=== PATIENT | male | born 1980 | race Caucasian/White ===

== ENCOUNTER 2016-07-25 12:00 | Inpatient (IN) | payer OTHER ==
[~2016-07-25] VITALS: Ht 188 cm; Wt 158.8 kg
--- NOTE | ~2016-07-25 | HC ---
[facility] [place] [address] CONSULTATION Name: ALBINO ESTRELLA Room #: 211-P ADM IN M.R.#: [id number] Admission: 07/25/16 Attend Phys: Kyle Sanz DO Discharge: Date of : 76 Report #: [id number] THIS REPORT FOR: //name// CC: JIM physician/PCP Kyle Sanz DATE OF SERVICE: 07/25/2016 INDICATION: Chest pain. HISTORY OF PRESENT ILLNESS: This is a 36-year-old male with no significant past medical history presenting with chest pains. He reports waking up with chest pain this morning in the left side of his chest, radiating up into the shoulder and back area. It comes and goes with no obvious triggering factors. There is no history of fever, chills, runny nose, diarrhea, PND or orthopnea. His initial ECG is unremarkable and the troponins are negative. PAST MEDICAL HISTORY: Admitted in 2013 with pericarditis, at that time he did have EKG changes. Denies any history of hypertension or diabetes. MEDICATIONS: Include Xanax on a p.r.n. basis. ALLERGIES: None. SOCIAL HISTORY: Smokes less than 1 pack of cigarettes per month. FAMILY HISTORY: Negative for premature CAD. REVIEW OF SYSTEMS: A full 10-point review of systems performed. Only the pertinent positives and negatives are described in the HPI. PHYSICAL EXAMINATION: VITAL SIGNS: Blood pressure is 130/70, heart rate is 60 beats per minute. GENERAL APPEARANCE: An overweight male in no acute respiratory distress. HEAD AND EYES: Normocephalic. Sclerae are anicteric. ENT: Oral mucosa moist. NECK: Supple. LUNGS: Clear to auscultation. CARDIAC: Regular rate and rhythm, S1, S2 positive. ABDOMEN: Soft, nontender. Bowel sounds positive. EXTREMITIES: No major joint deformities. No edema. ECG reveals sinus rhythm, otherwise normal. LABORATORY VALUES: Troponin x 2 is negative. White count is 8.0, hemoglobin 17.4. Sodium is 142, creatinine is 1.1. [address] [address] CONSULTATION Name: ALBINO ESTRELLA Room #: [facility] IN M.R.#: [id number] Admission: 07/25/16 Attend Phys: Kyle Sanz DO Discharge: Date of : 76 Report #: [id number] ASSESSMENT: 1. Chest pain syndrome, the pain is reproducible with palpation in the left chest area. The cause is most likely a musculoskeletal etiology. The ECG does not show any acute ST segment changes, no indication for ischemia or pericarditis. Would recommend non-steroidal anti-inflammatory drugs for pain relief. 2. Prior history of pericarditis, the ECG does not suggest a prior cardiac etiology. His symptoms are not consistent with this diagnosis either. 3. Tobacco use, smoking cessation is discussed. 4. Obesity, recommend life style modifications. Thank you for allowing me to participate in the care of your patient. <ELECTRONICALLY SIGNED> By: Benjamín Baig MD 07/26/16 0805 1654 02 Benjamín Baig MD /nt
--- NOTE | ~2016-07-25 | EKG ---
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
[2016-07-25 12:00] VITALS: BP 157/104
[~2016-07-25 12:00] MED LIST: HYDROCODONE-APA1 TA1 PO; IBUPROFEN 800800 M1 PO; NORCO 5-325 TA1 EACH PO; PERCOCET 7.5-31 EACH PO; SENNA-S TABLET1 EACH PO; XANAX 0.5 MG0.5 MG PO
[2016-07-25 12:23] LABS: ABSOLUTE NEUTROPHILS 3.9 thou/uL (1.4-8.2); BASOPHILS 0.5 % (0.0-2.0); EOSINOPHILS 2.8 % (0.0-3.0); HEMATOCRIT 49.9 % (42.0-52.0); HEMOGLOBIN 17.4 gm/dL (14.0-18.0); LYMPHOCYTES 39.8 % (24.0-44.0); MCH 32.2 pg (26.0-34.0); MCHC 34.9 g/dL (28.0-37.0); MCV 92.4 fL (80.0-100.0); MONOCYTES 7.5 % (1.0-8.0); PLATELET COUNT 248 thou/uL (150-400); POLYS 49.4 % (36.0-66.0); RDW 12.8 % (10.5-14.5)
[2016-07-25 12:24] LABS: MANUAL DIFF NO
[2016-07-25 12:28] LABS: ANION GAP 10 mmol/L (7-16); BUN 11 mg/dL (7-18); CALCIUM 9.2 mg/dL (8.5-10.1); CHLORIDE 107 mmol/L (98-107); CO2 25 mmol/L (21-32); CREATININE 1.1 mg/dL (0.6-1.3); GLUCOSE 98 mg/dL (70-99); SODIUM 142 mmol/L (136-145)
[2016-07-25 12:41] LABS: NT-PRO BRAIN NAT PEPTIDE 12 pg/mL (<300); TROPONIN-I < 0.04 ng/mL (<0.04-0.07)
[2016-07-25 14:01] LABS: AMP/METHAMP Negative (Negative); BARBITURATES Negative (Negative); BENZODIAZEPINES POSITIVE (Negative); COCAINE Negative (Negative); METHADONE Negative (Negative); OPIATES Negative (Negative); PCP Negative (Negative); THC POSITIVE (Negative)
[2016-07-25 14:45] VITALS: BP 129/69
[2016-07-25 15:59] VITALS: BP 138/82
[2016-07-25 19:50] VITALS: BP 153/94
[2016-07-26 00:30] VITALS: BP 133/76
[2016-07-26 03:31] LABS: ABSOLUTE NEUTROPHILS 4.1 thou/uL (1.4-8.2); BASOPHILS 0.4 % (0.0-2.0); EOSINOPHILS 3.6 % (0.0-3.0); HEMATOCRIT 45.6 % (42.0-52.0); HEMOGLOBIN 15.9 gm/dL (14.0-18.0); LYMPHOCYTES 39.4 % (24.0-44.0); MCH 32.3 pg (26.0-34.0); MCHC 34.9 g/dL (28.0-37.0); MCV 92.5 fL (80.0-100.0); MONOCYTES 8.2 % (1.0-8.0); PLATELET COUNT 246 thou/uL (150-400); POLYS 48.4 % (36.0-66.0); RBC 4.93 mil/uL (4.50-6.00); RDW 12.9 % (10.5-14.5); WBC 8.5 thou/uL (4.0-11.0)
[2016-07-26 03:33] LABS: MANUAL DIFF NO
[2016-07-26 03:45] VITALS: BP 131/87
[2016-07-26 03:50] LABS: ANION GAP 6 mmol/L (7-16); BUN 12 mg/dL (7-18); CALCIUM 8.9 mg/dL (8.5-10.1); CHLORIDE 106 mmol/L (98-107); CO2 29 mmol/L (21-32); CREATININE 1.1 mg/dL (0.6-1.3); GLUCOSE 86 mg/dL (70-99); POTASSIUM 4.4 mmol/L (3.5-5.1); SODIUM 141 mmol/L (136-145); TROPONIN-I < 0.04 ng/mL (<0.04-0.07)
[2016-07-26 12:24] VITALS: BP 134/82
[2016-07-26] MEDS ORDERED: APAP650 PO (12:57)
[2016-07-26] MEDS ORDERED: PANTOPRAZOLE SO40 M1 PO (12:57)
[2016-07-26 13:35] VITALS: BP 134/82
[2016-07-26] MEDS ORDERED: PROTONIX40 M1 PO (14:10)
[2016-07-26] MEDS ORDERED: HYDROCODONE-APA1 TA1 PO (14:10)
== END 2016-07-26 14:33 | disposition home or self-care (01) | DRG 313 ==
LOC: ER 12:00 → EROBS 13:22 → 2N 14:00
PROVIDERS: Emergency Medicine; Internal Medicine Geriatric Medicine
DX: R07.89 Other chest pain (principal); Z68.41 Body mass index [BMI] 40.0-44.9, adult; F17.210 Nicotine dependence, cigarettes, uncomplicated; R06.02 Shortness of breath; K21.9 Gastro-esophageal reflux disease without esophagitis; F12.90 Cannabis use, unspecified, uncomplicated; G47.30 Sleep apnea, unspecified; E66.01 Morbid (severe) obesity due to excess calories; Z91.09 Other allergy status, other than to drugs and biological substances; Z71.6 Tobacco abuse counseling
CPT/HCPCS: 10081

== ENCOUNTER 2017-09-25 22:15 | Inpatient (IN) | payer OTHER ==
[~2017-09-25] VITALS: Ht 188 cm; Wt 154.2 kg
--- NOTE | ~2017-09-25 | 2DMMODE ---
[facility] [address] [facility] [place] [address] 2 D/M-MODE ECHOCARDIOGRAM Name: DELORESALBINO LINARES Room #: 459-P [facility] IN ..#: [id number] Admission: 09/26/17 Attend Phys: Ish Norman MD Discharge: Date of : 76 Date of Service: 09/26/17 1849 Report #: [id number] THIS REPORT FOR: //name// APPROVED REPORT Study performed: 09/26/2017 13:35:20 EXAM: Comprehensive 2D, Doppler, and color-flow Echocardiogram Patient Location: Bedside Room #: 459 Status: routine BSA: 2.72 HR: 68 bpm BP: 124/68 mmHg Other Information Study Quality: Adequate Indications Dyspnea Syncope Chest Pain Hypertension/HDD 2D Dimensions LVEF(%): 59.80 (>50%) IVSd: 13.24 (7-11mm) LVDd: 53.64 mm PWd: 13.51 (7-11mm) Ascending Ao: 27.62 (22-36mm) LVDs: 36.41 (25-40mm) Left Atrium: 44.12 (27-40mm) Aortic Root: 29.40 mm IVC: 2.30 mm Phoenix's LVEF: 59.80 % Volumes Left Atrial Volume (Systole) Single Plane 4CH: 36.19 mL Aortic Valve AoV Peak Raul.: 1.75 m/s AO Peak Gr.: 13.54 mmHg LVOT Max P.75 mmHg AO Mean Gr.: 7.15 mmHg AO V2 Mean: 1.30 m/s LVOT Max V: 1.09 m/s AO V2 VTI: 39.51 cm [facility] [address] [place] [address] 2 D/M-MODE ECHOCARDIOGRAM Name: ALBINO ESTRELLA Room #: 459-P [facility] IN [facility].#: [id number] Admission: 09/26/17 Attend Phys: Ish Norman MD Discharge: Date of : 76 Date of Service: 09/26/17 1849 Report #: [id number] Mitral Valve E/A Ratio: 1.7 MV Decel. Time: 229.11 ms MV E Max Raul.: 1.18 m/s MV A Raul.: 0.71 m/s MV PHT: 66.44 ms IVRT: 96.89 ms Pulmonary Valve PV Peak Raul.: 1.12 m/s PV Peak Gr.: 5.03 mmHg Pulmonary Vein P Vein S: 0.64 m/s P Vein A: 0.33 m/s P Vein D: 0.55 m/s P Vein A Dur.: 156.9 msec P Vein S/D Ratio: 1.16 Tricuspid Valve TR Peak Raul.: 3.03 m/s TR Peak Gr.: 36.84 mmHg Left Ventricle Left ventricle is at the upper limits of normal. Borderline concentric left ventricular hypertrophy. The left ventricular systolic function is normal. The left ventricular ejection fraction is within the normal range. LVEF is 55-60%. The left ventricular diastolic function is normal. Right Ventricle Normal RV size The right ventricular systolic function is normal. Atria The left atrium size is normal. The right atrium size is normal. Aortic Valve The aortic valve is normal in structure. No aortic regurgitation is present. There is no aortic valvular stenosis. Mitral Valve The mitral valve is normal in structure. Trace mitral regurgitation. No evidence of mitral valve stenosis. Tricuspid Valve The tricuspid valve is normal in structure. Trace tricuspid regurgitation. There is trace tricuspid regurgitation. [facility] [address] [facility] [place] [address] 2 D/M-MODE ECHOCARDIOGRAM Name: DELORESALBINO MILAGROS Room #: 459-P [facility] IN ..#: [id number] Admission: 09/26/17 Attend Phys: Ish Norman MD Discharge: Date of : 76 Date of Service: 09/26/17 1849 Report #: [id number] atrial pressure is estimated at 36 mmHg. Right ventricular systolic pressure is estimated at 39 mmHg. There is mild pulmonary hypertension. Pulmonic Valve The pulmonary valve is normal in structure. There is no pulmonic valvular regurgitation. Great Vessels The aortic root is normal in size. IVC is normal in size and collapses >50% with inspiration. Pericardium There is no pericardial effusion. <Conclusion> Borderline concentric left ventricular hypertrophy. The left ventricular systolic function is normal. The left ventricular ejection fraction is within the normal range. LVEF is 55-60%. The left ventricular diastolic function is normal. Normal RV size The right ventricular systolic function is normal. The aortic valve is normal in structure. No aortic regurgitation is present. There is no aortic valvular stenosis. The mitral valve is normal in structure. Trace mitral regurgitation. No evidence of mitral valve stenosis. There is no pericardial effusion. <ELECTRONICALLY SIGNED> By: Tom Barnett MD 09/26/171848 48 48 Tom Barnett MD /INF
--- NOTE | ~2017-09-25 | EKG ---
[address] [address] ELECTROCARDIOGRAM REPORT Name: ALBINO ESTRELLA Room #: 459-P ADM IN M.R.#: [id number] Admission: 09/26/17 Attend Phys: sIh Norman MD Discharge: Date of : 76 Report #: [id number] THIS REPORT FOR: //name// 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
--- NOTE | ~2017-09-25 | EKG ---
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
[~2017-09-25 22:15] MED LIST changes: +APAP650 PO; +HYDROCODON-ACE1 EAC7 PO; +IBUPROFEN 200200 M1 PO; +NEURONTIN600 MG PO; +PANTOPRAZOLE SO40 M1 PO; +PREDNISONE 20 M20 MG PO; +PROTONIX40 M1 PO; +ROBAXIN500 MG PO; +TIZANIDINE HCL4 M1 PO; +TRAMADOL 50 MG50 MG PO; +TYLENOL325 MG PO
[2017-09-25 22:38] VITALS: BP 135/82
[2017-09-25 22:59] LABS: ABSOLUTE NEUTROPHILS 9.4 thou/uL (1.4-8.2); BASOPHILS 0.4 % (0.0-2.0); EOSINOPHILS 0.8 % (0.0-3.0); HEMOGLOBIN 16.1 gm/dL (14.0-18.0); LYMPHOCYTES 18.5 % (24.0-44.0); MCH 32.1 pg (26.0-34.0); MCV 91.6 fL (80.0-100.0); MONOCYTES 7.6 % (1.0-8.0); PLATELET COUNT 266 thou/uL (150-400); POLYS 72.7 % (36.0-66.0); RBC 5.02 mil/uL (4.50-6.00); RDW 13.2 % (10.5-14.5); WBC 12.9 thou/uL (4.0-11.0)
[2017-09-25 23:07] LABS: ANION GAP 10 mmol/L (7-16); BUN 17 mg/dL (7-18); CHLORIDE 105 mmol/L (98-107); CO2 27 mmol/L (21-32); CREATININE 1.4 mg/dL (0.7-1.3); GLUCOSE 105 mg/dL (74-106); POTASSIUM 3.8 mmol/L (3.5-5.1); SODIUM 142 mmol/L (136-145)
[2017-09-25 23:16] LABS: ALBUMIN 4.5 g/dL (3.4-5.0); SGOT 29 U/L (15-37); SGPT 52 U/L (30-65); TOTAL BILIRUBIN 0.8 mg/dL (<0.1-1.0); TOTAL PROTEIN 8.2 g/dL (6.4-8.2); TROPONIN-I < 0.04 ng/mL (<0.06)
[2017-09-26 00:30] VITALS: BP 144/57
[2017-09-26 00:47] VITALS: BP 136/56
[2017-09-26 01:15] VITALS: BP 124/68
[2017-09-26 05:01] LABS: HEMATOCRIT 41.4 % (42.0-52.0); MCH 31.9 pg (26.0-34.0); MCHC 34.2 g/dL (28.0-37.0); MCV 93.2 fL (80.0-100.0); RBC 4.44 mil/uL (4.50-6.00); RDW 13.1 % (10.5-14.5); WBC 8.7 thou/uL (4.0-11.0)
[2017-09-26 05:06] LABS: HEMOGLOBIN 14.1 gm/dL (14.0-18.0)
[2017-09-26 05:07] LABS: CALCIUM 8.6 mg/dL (8.5-10.1); CREATININE 1.1 mg/dL (0.7-1.3); POTASSIUM 3.4 mmol/L (3.5-5.1)
[2017-09-26 11:00] VITALS: BP 147/82
[2017-09-26 16:15] VITALS: BP 128/86
[2017-09-26 19:19] VITALS: BP 115/61
== END 2017-09-26 20:55 | disposition left against medical advice (07) | DRG 312 ==
LOC: ER 22:15 → EROBS 09-26 00:12 → 4W 09-26 00:58
PROVIDERS: Emergency Medicine; Nurse Practitioner Family
DX: R55 Syncope and collapse (principal); Z68.41 Body mass index [BMI] 40.0-44.9, adult; M54.9 Dorsalgia, unspecified; G89.29 Other chronic pain; F17.210 Nicotine dependence, cigarettes, uncomplicated; R07.9 Chest pain, unspecified; W19.XXXA Unspecified fall, initial encounter; E66.9 Obesity, unspecified; Z79.899 Other long term (current) drug therapy; Z82.49 Family history of ischemic heart disease and other diseases of the circulatory system; Z83.3 Family history of diabetes mellitus; Z80.0 Family history of malignant neoplasm of digestive organs; Y93.89 Activity, other specified; Y92.89 Other specified places as the place of occurrence of the external cause; Y99.8 Other external cause status
CPT/HCPCS: 10045

== ENCOUNTER 2020-05-01 17:04 | Emergency (ER) | payer OTHER ==
[~2020-05-01] VITALS: Ht 188 cm; Wt 149.7 kg
[2020-05-01 19:01] LABS: ABSOLUTE NEUTROPHILS 4.9 thou/uL (1.4-8.2); BASOPHILS 0.4 % (0.0-2.0); EOSINOPHILS 1.8 % (0.0-3.0); HEMATOCRIT 47.2 % (42.0-52.0); HEMOGLOBIN 16.2 gm/dL (14.0-18.0); LYMPHOCYTES 35.2 % (24.0-44.0); MCHC 34.3 g/dL (28.0-37.0); MCV 96.2 fL (80.0-100.0); MONOCYTES 7.9 % (1.0-8.0); PLATELET COUNT 281 thou/uL (150-400); POLYS 54.7 % (36.0-66.0); RBC 4.91 mil/uL (4.50-6.00); RDW 12.3 % (10.5-14.5); WBC 8.9 thou/uL (4.0-11.0)
[2020-05-01 19:06] LABS: ANION GAP 5 mmol/L (7-16); BUN 13 mg/dL (7-18); CALCIUM 9.8 mg/dL (8.5-10.1); CHLORIDE 105 mmol/L (98-107); CO2 28 mmol/L (21-32); CREATININE 1.2 mg/dL (0.7-1.3); GLUCOSE 101 mg/dL (74-106); POTASSIUM 4.2 mmol/L (3.5-5.1); SODIUM 138 mmol/L (136-145)
[2020-05-01 19:14] LABS: ALBUMIN 4.2 g/dL (3.4-5.0); DIRECT BILIRUBIN < 0.1 mg/dL (<0.1-0.2); LIPASE 294 U/L (73-393); SGOT 22 U/L (15-37); SGPT 35 U/L (16-63); TOTAL BILIRUBIN 0.4 mg/dL (0.2-1.0)
[2020-05-01] MEDS ORDERED: MOBIC15 MG PO (20:11)
[2020-05-01 20:33] VITALS: BP 151/98
== END 2020-05-01 20:33 | disposition home or self-care (01) ==
LOC: ER 17:04
PROVIDERS: Emergency Medicine
DX: R10.12 Left upper quadrant pain (principal); R11.2 Nausea with vomiting, unspecified; K59.00 Constipation, unspecified; F17.210 Nicotine dependence, cigarettes, uncomplicated; G89.29 Other chronic pain; M54.9 Dorsalgia, unspecified; Z79.899 Other long term (current) drug therapy